=== PATIENT | male | born 1970 | race Caucasian/White ===

== ENCOUNTER 2021-06-17 15:40 | Emergency (ER) | payer OTHER ==
[2021-06-17 16:52] LABS: INR 1.46 (0.9-1.2); PTT 35.3 SECONDS (24.4-34.7)
[2021-06-17 16:55] LABS: BASOPHIL 0.4 % (0-2); EOSINOPHIL 3.2 % (0-5); HCT 30.7 % (42.0-52.0); HGB 10.3 g/dl (13.2-18.0); LYMPHOCYTE 17.5 % (15-48); MCH 30.1 pg (25.0-31.0); MCHC 33.6 g/dL (32.0-36.0); MCV 89.8 fL (78.0-100.0); MONOCYTE 14.3 % (0-12); MPV 12.3 fL (6.0-9.5); NEUTROPHIL 64.2 % (41-80); NRBC 0; RBC 3.42 M/uL (4.70-6.00); RDW 15.5 % (11.5-14.0); WBC 2.5 K/uL (4.0-10.5)
[2021-06-17 16:58] LABS: PLT 43 K/uL (150-400)
[2021-06-17 17:00] LABS: BILIRUBIN NEGATIVE (NEGATIVE); BLOOD NEGATIVE Ery/uL (NEGATIVE); CLARITY CLEAR (CLEAR); COLOR YELLOW (YELLOW); GLUCOSE (U) TRACE mg/dL (NORMAL); LEUKOCYTES NEGATIVE Leu/uL (NEGATIVE); NITRITE NEGATIVE (NEGATIVE); PROTEIN TRACE (LOW) mg/dL (NEGATIVE); pH 6.5 (5.0-9.0)
[2021-06-17 17:01] LABS: ALBUMIN 2.3 g/dL (3.4-5.0); BILIRUBIN - TOTAL 1.6 mg/dL (0.2-1.0); BUN/CREAT RATIO (CALC) 15.2 RATIO; CREATININE 1.05 mg/dL (0.67-1.17); GLOBULIN (CALCULATION) 3.8 g/dL; LACTIC ACID 1.2 mmol/L (0.4-1.9); POTASSIUM 3.6 mmol/L (3.5-5.1); TOTAL PROTEIN 6.1 g/dL (6.4-8.2)
[2021-06-17 17:06] LABS: CKMB 1.9 ng/mL (0.0-3.6)
[2021-06-17 17:20] LABS: BACTERIA 1+
== END 2021-06-17 21:35 | disposition left against medical advice (07) ==
LOC: FER 15:40
PROVIDERS: Emergency Medicine
DX: I21.4 Non-ST elevation (NSTEMI) myocardial infarction (principal); K75.81 Nonalcoholic steatohepatitis (NASH); R18.8 Other ascites; D69.6 Thrombocytopenia, unspecified; E11.9 Type 2 diabetes mellitus without complications; I10 Essential (primary) hypertension; F17.210 Nicotine dependence, cigarettes, uncomplicated; Z20.822 Contact with and (suspected) exposure to COVID-19; Z88.5 Allergy status to narcotic agent; Z79.4 Long term (current) use of insulin; Z79.82 Long term (current) use of aspirin; Z79.899 Other long term (current) drug therapy
CPT/HCPCS: 36415; 71046; 80053; 81001; 82140; 82553; 83605; 83690; 83880; 84484; 85025; 85610; 85730; 93005; Q9967; U0002